=== PATIENT | male | born 1970 | race Caucasian/White ===

== ENCOUNTER → 2020-11-20 | Outpatient (CLI) | payer OTHER | LOC: EXRD 08:42 | DX: R74.8 Abnormal levels of other serum enzymes (principal) | CPT/HCPCS: 76705 ==

== ENCOUNTER → 2021-07-03 | Outpatient (CLI) | payer OTHER ==
[~2021-07-03] MED LIST: C-10001000 MG PO; CLARITIN10 M2 PO; DITROPAN XL10 MG PO; EFFEXOR XR 75 M75 MG PO; HYDROXYZINE HCL25 MG PO; LISINOPRIL5 MG PO; PROAIR HFA8.5 GM INH; TRAZODONE HCL50 MG PO; VITAMIN D3125 MCG PO
== END ==
LOC: CT 06:04
PROVIDERS: Internal Medicine Gastroenterology
DX: K76.0 Fatty (change of) liver, not elsewhere classified (principal); R79.89 Other specified abnormal findings of blood chemistry; R76.8 Other specified abnormal immunological findings in serum
CPT/HCPCS: 76942; 85049; 85610; 85730; 86038; J2270